=== PATIENT | male | born 1990 | race African-American/Black ===

== ENCOUNTER 2023-11-01 14:07 | Emergency (ER) | payer SELFPAY ==
[~2023-11-01] VITALS: Ht 185.4 cm; Wt 90.0 kg
[2023-11-01 14:10] VITALS: O2SAT 100
[2023-11-01 14:25] LABS: BASOPHILS % 0.5 % (0.0-2.0); EOSINOPHILS % 0.3 % (0.0-5.0); HEMATOCRIT. 41.8 % (42.0-52.0); HEMOGLOBIN. 13.7 g/dL (14.0-18.0); LYMPHOCYTES % 65.7 % (20.0-50.0); MEAN CORPUSCULAR HEMOGLOBIN 29.5 pg (28.0-32.0); MEAN CORPUSCULAR HGB CONC 32.8 g/dL (31.0-37.0); MEAN CORPUSCULAR VOLUME 89.9 fL (80.0-94.0); MEAN PLATELET VOLUME 6.9 fl (7.4-10.4); MONOCYTES % 7.4 % (2.0-8.0); NEUTROPHILS % 26.1 % (40.0-76.0); PLATELET 232 x1000/uL (130-400); RED BLOOD CELL COUNT 4.65 mill/uL (4.7-6.1); RED CELL DISTRIBUTION WIDTH 12.5 % (11.6-14.6); WHITE BLOOD COUNT 4.5 x1000/uL (4.5-11.0)
[2023-11-01] MEDS: TETANUS, DIPHTHERIA, PERTUSSIS VAC/PF 0.5ML (>10YR OLD) IM ONE (14:34)
[2023-11-01 14:57] LABS: CALCIUM 9.2 mg/dL (8.7-10.4); CARBON DIOXIDE 21 mEq/L (21-32); CHLORIDE 105 mEq/L (98-107); CREATININE 1.2 mg/dL (0.6-1.3); GLUCOSE 97 mg/dL (70-105); POTASSIUM 3.6 mEq/L (3.5-5.1); SODIUM 137 mEq/L (136-145); UREA NITROGEN BLOOD 9 mg/dL (9-23)
[2023-11-01 16:05] LABS: PARTIAL THROMBOPLASTIN TIME 22.9 sec (23.4-31.0); PROTHROMBIN TIME 11.4 sec (9.6-11.0)
[2023-11-01] MEDS: FENTANYL CITRATE/PF 50MCG/ML 2ML VIAL IV ONE (16:59)
[2023-11-01] MEDS: ONDANSETRON HCL 4MG/2ML INJ IV ONE (16:59)
[2023-11-01 17:01] VITALS: BP 162/97; PULSE 68; RESP 14; TEMP 97.8
== END 2023-11-01 17:20 | disposition short-term general hospital (02) ==
LOC: ER 14:07
DX: S41.012A Laceration without foreign body of left shoulder, initial encounter (principal)
CPT/HCPCS: 80048; 85025; 85610; 85730; 86850; 86900; 86901; 36415; 71045; 90715; 12002; 90471; 96374; 96375; 99291; J3010; J2405; Z7610 ×2